=== PATIENT | female | born 1925 | race Caucasian/White ===

== ENCOUNTER 2017-07-19 13:12 | Emergency (ER) | payer MEDICARE ==
[~2017-07-19] VITALS: Ht 152.4 cm; Wt 62.6 kg
[2017-07-19 13:28] VITALS: BP 128/70
== END 2017-07-19 14:17 | disposition home or self-care (01) ==
LOC: ER 13:17
DX: S81.011A Laceration without foreign body, right knee, initial encounter (principal); S41.112A Laceration without foreign body of left upper arm, initial encounter; I10 Essential (primary) hypertension; W01.0XXA Fall on same level from slipping, tripping and stumbling without subsequent striking against object, initial encounter; Y93.89 Activity, other specified; Y92.89 Other specified places as the place of occurrence of the external cause; Y99.8 Other external cause status
CPT/HCPCS: 99282; A4606; Z7610